=== PATIENT | male | born 1955 | race Two or more races ===

== ENCOUNTER 2022-07-28 23:19 | Inpatient (IN) | payer OTHER ==
[~2022-07-28] VITALS: Ht 170.2 cm; Wt 80.5 kg
[2022-07-29 00:50] LABS: Hematocrit 37.9 % (41.0-53.0); Hemoglobin 12.9 g/dL (13.5-17.5); Mean Corpuscular Hemoglobin 28.1 pg (28.0-32.0); Mean Corpuscular Hgb Conc. 33.9 g/dL (32.0-36.0); Mean Corpuscular Volume 82.8 fL (80.0-100.0); Red Blood Cells 4.58 10^6/uL (4.5-5.90); Red Cell Distribution Width 15.2 % (11.8-14.3); White Blood Cell 27.3 10^3/uL (4.4-10.8)
[2022-07-29 00:53] LABS: Band Neutrophils % (manual) 0; Basophils % (manual) 0 (0.0-2.0); Blast Cells 0; Eosinophils % (manual) 0 (0-7); Metamyelocytes % 0; Myelocytes % 0; Promyelocytes % 0; Reactive Lymphocytes 0
[2022-07-29 00:57] LABS: Albumin 2.6 g/dL (3.4-5.0); BUN/Creatinine Ratio 12.7 (10.0-20.0); Calcium 9.7 mg/dL (8.5-10.1)
[2022-07-29 01:06] LABS: Bilirubin, Total 0.3 mg/dL (0.2-1.0); INR 0.97 (0.9-1.15); Partial Thromboplastin Time 23.9 sec (24.6-33.4); Total Protein 8.8 g/dL (6.4-8.2)
[2022-07-29 01:35] LABS: Lymphocytes % (manual) 6 (10.0-50.0); Monocytes % (manual) 5 (0-12)
[2022-07-29] MEDS ORDERED: PIPERACILLIN-TAZOB 3.375GM 100 ML IV ONE (02:15)
[2022-07-29] MEDS: LACTATED RINGER'S 1,950 ML IV ONE ×2 (02:15→02:22)
[2022-07-29] MEDS ORDERED: VANCOMYCIN 1GM/250ML 250 ML IV ONE ×2 (02:15→06:00)
[2022-07-29] MEDS: hydrALAZINE HCL 20 MG/ML VL IV ONE ×2 (02:15→02:24)
[2022-07-29] MEDS ORDERED: levoFLOXacin 750MG 150 ML IV ONE (02:30)
[2022-07-29] MEDS ORDERED: HEPARIN SODIUM (PORCINE) 5000 UNITS/ML 1ML VIAL IV ONE ×2 (04:15→16:30)
[2022-07-29] MEDS ORDERED: HEPARIN DRIP/D5W 100UNITS/ML 250 ML IV SCH ×3 (04:15→16:30)
[2022-07-29] MEDS ORDERED: hydrALAZINE HCL 20 MG/ML VL IV PRN (04:45)
[2022-07-29] MEDS ORDERED: FUROSEMIDE 40 MG/4 ML VIAL IV ONE (04:45)
[2022-07-29] MEDS ORDERED: ACETAMINOPHEN 325 MG TAB PO PRN (04:45)
[2022-07-29] MEDS ORDERED: VANCOMYCIN PER PHARMACY 0 MG IV SCH (04:45)
[2022-07-29] MEDS ORDERED: DEXTROSE (50%) 50ML SYRG IV PRN (04:45)
[2022-07-29] MEDS ORDERED: ONDANSETRON HCL 4 MG/2 ML VIAL IV PRN (04:45)
[2022-07-29] MEDS ORDERED: DOCUSATE SOD 100 MG CAP PO PRN (04:45)
[2022-07-29] MEDS ORDERED: cloNIDine HCL 0.1 MG TAB ONE (05:51)
[2022-07-29] MEDS: SODIUM CHLOR 0.9% PF (SALINE LOCK) 10ML VIAL/SYR IV SCH ×3 (06:00→22:56)
[2022-07-29] MEDS ORDERED: cloNIDine HCL 0.1 MG TAB PO ONE (06:00)
[2022-07-29] MEDS ORDERED: MORPHINE SULFATE INJ 2 MG/ml SYRG IV PRN (06:15)
[2022-07-29] MEDS ORDERED: NITROGLYCERIN 0.4 MG SL TAB SL PRN (06:15)
[2022-07-29] MEDS ORDERED: FUROSEMIDE 40 MG TAB PO ONE (06:45)
[2022-07-29] MEDS: ACCU-CHEK COMFORT CURVE STRIP VI SCH ×4 (07:21→22:56)
[2022-07-29] MEDS: InsuLIN REG 1unit/0.01ml Soln (100units/ml) SC SCH ×4 (07:27→23:12)
[2022-07-29] MEDS: FAMOTIDINE (10MG/ML) 2ML VL IV SCH (11:46)
[2022-07-29] MEDS: CARVEDILOL 12.5 MG TAB PO SCH ×2 (11:46→22:56)
[2022-07-29] MEDS: amLODIPine BESYLATE 5 MG TAB PO SCH (11:47)
[2022-07-29] MEDS: ASPirin 81 mg TAB PO SCH (11:47)
[2022-07-29] MEDS: HYDROcodone-ACET 5/325MG TAB PO PRN ×3 (12:00→20:28)
[2022-07-29 14:50] LABS: Basophils # (auto) 0.1 10 ^3/uL (0-0.2); Basophils % (auto) 0.3 % (0.0-2.0); Eosinophils # (auto) 0 10 ^3/uL (0-0.8); Eosinophils % (auto) 0.1 % (0.0-7.0); Hematocrit 35.2 % (41.0-53.0); Hemoglobin 11.8 g/dL (13.5-17.5); Lymphocytes # (auto) 1.6 10 ^3/uL (0.4-5.4); Lymphocytes % (auto) 7.1 % (10.0-50.0); Mean Corpuscular Hemoglobin 26.9 pg (28.0-32.0); Mean Corpuscular Hgb Conc. 33.5 g/dL (32.0-36.0); Mean Corpuscular Volume 80.5 fL (80.0-100.0); Monocytes # (auto) 1.1 10 ^3/uL (0-1.3); Neutrophils # (auto) 19.5 10 ^3/uL (1.6-8.6); Neutrophils % (auto) 87.5 % (37.0-80.0); Nucleated Red Blood Cells % 0.1 %; Red Blood Cells 4.37 10^6/uL (4.5-5.90); Red Cell Distribution Width 15.6 % (11.8-14.3); White Blood Cell 22.3 10^3/uL (4.4-10.8)
[2022-07-29] MEDS ORDERED: levoFLOXacin 250MG 50 ML IV ONE (15:00)
[2022-07-29 15:10] LABS: Albumin 2.1 g/dL (3.4-5.0); Calcium 8.7 mg/dL (8.5-10.1); Potassium 3.6 mmol/L (3.5-5.1)
[2022-07-29 15:18] LABS: Bilirubin, Total 0.4 mg/dL (0.2-1.0); Total Protein 7.4 g/dL (6.4-8.2)
[2022-07-29 15:59] LABS: INR 1.08 (0.9-1.15); Partial Thromboplastin Time 24.3 sec (24.6-33.4)
[2022-07-29] MEDS ORDERED: PIPERACILLIN-TAZOB 3.375GM 100 ML IV SCH (22:00)
[2022-07-29 22:05] VITALS: BP 146/82
[2022-07-29] MEDS: LINEZOLID 600MG/300ML 300 ML IV SCH (23:07)
[2022-07-29 23:37] LABS: INR 1.09 (0.9-1.15); Partial Thromboplastin Time 40.2 sec (24.6-33.4)
[2022-07-30] MEDS: HYDROcodone-ACET 5/325MG TAB PO PRN ×5 (01:51→21:25)
[2022-07-30 05:00] VITALS: BP 135/82
[2022-07-30] MEDS: SODIUM CHLOR 0.9% PF (SALINE LOCK) 10ML VIAL/SYR IV SCH ×3 (05:52→21:35)
[2022-07-30] MEDS: ACCU-CHEK COMFORT CURVE STRIP VI SCH ×4 (07:01→21:41)
[2022-07-30] MEDS: InsuLIN REG 1unit/0.01ml Soln (100units/ml) SC SCH ×4 (07:05→21:41)
[2022-07-30 07:27] LABS: INR 1.06 (0.9-1.15); Partial Thromboplastin Time 33.3 sec (24.6-33.4)
[2022-07-30] MEDS ORDERED: HEPARIN DRIP/D5W 100UNITS/ML 250 ML IV SCH (08:45)
[2022-07-30] MEDS ORDERED: HEPARIN SODIUM (PORCINE) 5000 UNITS/ML 1ML VIAL IV ONE (08:45)
[2022-07-30 09:00] VITALS: BP 132/84
[2022-07-30] MEDS ORDERED: FUROSEMIDE 40 MG/4 ML VIAL IV SCH (10:00)
[2022-07-30 10:03] LABS: Basophils # (auto) 0 10 ^3/uL (0-0.2); Basophils % (auto) 0.3 % (0.0-2.0); Eosinophils # (auto) 0.3 10 ^3/uL (0-0.8); Eosinophils % (auto) 2.1 % (0.0-7.0); Hematocrit 34.8 % (41.0-53.0); Hemoglobin 11.7 g/dL (13.5-17.5); Lymphocytes # (auto) 1.4 10 ^3/uL (0.4-5.4); Lymphocytes % (auto) 9.3 % (10.0-50.0); Mean Corpuscular Hemoglobin 27.5 pg (28.0-32.0); Mean Corpuscular Hgb Conc. 33.6 g/dL (32.0-36.0); Monocytes # (auto) 0.8 10 ^3/uL (0-1.3); Monocytes % (auto) 5.3 % (0.0-12.0); Neutrophils # (auto) 12.3 10 ^3/uL (1.6-8.6); Nucleated Red Blood Cells % 0.1 %; Red Blood Cells 4.24 10^6/uL (4.5-5.90); Red Cell Distribution Width 15.7 % (11.8-14.3); White Blood Cell 14.8 10^3/uL (4.4-10.8)
[2022-07-30 10:26] LABS: Albumin 2.1 g/dL (3.4-5.0); Calcium 8.1 mg/dL (8.5-10.1); Potassium 3.8 mmol/L (3.5-5.1)
[2022-07-30 10:30] LABS: BUN/Creatinine Ratio 13.6 (10.0-20.0); Bilirubin, Total 0.2 mg/dL (0.2-1.0); Total Protein 7.2 g/dL (6.4-8.2)
[2022-07-30] MEDS: CARVEDILOL 12.5 MG TAB PO SCH ×2 (10:45→21:26)
[2022-07-30] MEDS: amLODIPine BESYLATE 5 MG TAB PO SCH (10:45)
[2022-07-30] MEDS: levoFLOXacin 250MG 50 ML IV SCH (10:46)
[2022-07-30] MEDS: FAMOTIDINE (10MG/ML) 2ML VL IV SCH (10:46)
[2022-07-30] MEDS: LINEZOLID 600MG/300ML 300 ML IV SCH ×2 (10:46→21:34)
[2022-07-30] MEDS: ASPirin 81 mg TAB PO SCH (10:46)
[2022-07-30 13:00] VITALS: BP 154/78
[2022-07-30 17:00] VITALS: BP 137/87
[2022-07-30 18:53] LABS: INR 1.08 (0.9-1.15); Partial Thromboplastin Time 108.2 sec (24.6-33.4)
[2022-07-31 05:00] VITALS: BP 140/72
[2022-07-31] MEDS: HYDROcodone-ACET 5/325MG TAB PO PRN ×4 (05:07→20:38)
[2022-07-31] MEDS: SODIUM CHLOR 0.9% PF (SALINE LOCK) 10ML VIAL/SYR IV SCH ×3 (05:08→22:12)
[2022-07-31] MEDS: ACCU-CHEK COMFORT CURVE STRIP VI SCH ×4 (06:39→22:18)
[2022-07-31] MEDS: InsuLIN REG 1unit/0.01ml Soln (100units/ml) SC SCH ×4 (06:43→22:26)
[2022-07-31 09:00] VITALS: BP 149/81
[2022-07-31] MEDS: levoFLOXacin 250MG 50 ML IV SCH (09:45)
[2022-07-31] MEDS: LINEZOLID 600MG/300ML 300 ML IV SCH ×2 (09:45→22:11)
[2022-07-31] MEDS: ASPirin 81 mg TAB PO SCH (09:45)
[2022-07-31] MEDS: amLODIPine BESYLATE 5 MG TAB PO SCH (09:50)
[2022-07-31] MEDS: CARVEDILOL 12.5 MG TAB PO SCH ×2 (09:50→22:18)
[2022-07-31 13:00] VITALS: BP 147/83
[2022-07-31 13:14] LABS: Basophils # (auto) 0 10 ^3/uL (0-0.2); Basophils % (auto) 0.3 % (0.0-2.0); Eosinophils # (auto) 0.2 10 ^3/uL (0-0.8); Eosinophils % (auto) 2.7 % (0.0-7.0); Hematocrit 36.8 % (41.0-53.0); Hemoglobin 12.3 g/dL (13.5-17.5); Lymphocytes % (auto) 12.5 % (10.0-50.0); Mean Corpuscular Hemoglobin 27.8 pg (28.0-32.0); Mean Corpuscular Hgb Conc. 33.4 g/dL (32.0-36.0); Mean Corpuscular Volume 83.4 fL (80.0-100.0); Monocytes # (auto) 0.4 10 ^3/uL (0-1.3); Monocytes % (auto) 5.1 % (0.0-12.0); Neutrophils # (auto) 6.6 10 ^3/uL (1.6-8.6); Neutrophils % (auto) 79.4 % (37.0-80.0); Red Blood Cells 4.41 10^6/uL (4.5-5.90); Red Cell Distribution Width 15.8 % (11.8-14.3); White Blood Cell 8.3 10^3/uL (4.4-10.8)
[2022-07-31 13:28] LABS: BUN/Creatinine Ratio 12.7 (10.0-20.0); Calcium 8.1 mg/dL (8.5-10.1); Potassium 4.1 mmol/L (3.5-5.1)
[2022-07-31 16:44] LABS: Urine Bacteria NONE SEEN /hpf (None Seen); Urine Blood 1+ /uL (Negative); Urine Specific Gravity 1.015 (1.001-1.035); Urine WBC 1 /hpf (0 - 3)
[2022-07-31 17:00] VITALS: BP 155/89
[2022-07-31 17:11] LABS: Protein, Urine 487.9 mg/dL (0.0-11.9)
[2022-07-31 22:00] VITALS: BP 157/81
[2022-08-01 05:00] VITALS: BP 165/92
[2022-08-01] MEDS: HYDROcodone-ACET 5/325MG TAB PO PRN ×3 (05:35→13:44)
[2022-08-01] MEDS: SODIUM CHLOR 0.9% PF (SALINE LOCK) 10ML VIAL/SYR IV SCH ×2 (05:36→14:00)
[2022-08-01] MEDS: ACCU-CHEK COMFORT CURVE STRIP VI SCH ×3 (06:30→17:00)
[2022-08-01] MEDS: InsuLIN REG 1unit/0.01ml Soln (100units/ml) SC SCH ×3 (06:33→17:00)
[2022-08-01 09:00] VITALS: BP 164/90
[2022-08-01 10:02] LABS: Hepatitis B Surface Antibody Positive (Negative)
[2022-08-01] MEDS: ASPirin 81 mg TAB PO SCH (10:26)
[2022-08-01] MEDS: amLODIPine BESYLATE 5 MG TAB PO SCH (10:26)
[2022-08-01] MEDS: CARVEDILOL 12.5 MG TAB PO SCH (10:27)
[2022-08-01] MEDS: levoFLOXacin 250MG 50 ML IV SCH (10:28)
[2022-08-01] MEDS: LINEZOLID 600MG/300ML 300 ML IV SCH (10:28)
[2022-08-01 12:55] LABS: Hepatitis C Antibody Reactive (Negative)
[2022-08-01 13:00] VITALS: BP 165/81
[2022-08-01 16:22] VITALS: BP 164/90
[2022-08-01 17:17] VITALS: BP 165/85
== END 2022-08-01 18:55 | disposition short-term general hospital (02) | DRG 871 ==
LOC: EDBD 23:19 → ER 23:19 → TELE 07-29 06:07 → TELE-WESTW 07-29 21:48
PROVIDERS: ADMIT Nurse Practitioner Family; ATTEND Internal Medicine
DX: A41.9 Sepsis, unspecified organism (principal); I21.A1 Myocardial infarction type 2; J18.9 Pneumonia, unspecified organism; I50.43 Acute on chronic combined systolic (congestive) and diastolic (congestive) heart failure; N17.0 Acute kidney failure with tubular necrosis; I16.1 Hypertensive emergency; N18.4 Chronic kidney disease, stage 4 (severe); I13.0 Hypertensive heart and chronic kidney disease with heart failure and stage 1 through stage 4 chronic kidney disease, or unspecified chronic kidney disease; J44.0 Chronic obstructive pulmonary disease with (acute) lower respiratory infection; L03.116 Cellulitis of left lower limb; L03.115 Cellulitis of right lower limb; Z20.822 Contact with and (suspected) exposure to COVID-19; R65.20 Severe sepsis without septic shock; E11.22 Type 2 diabetes mellitus with diabetic chronic kidney disease; E88.09 Other disorders of plasma-protein metabolism, not elsewhere classified; E11.65 Type 2 diabetes mellitus with hyperglycemia; F11.90 Opioid use, unspecified, uncomplicated; Z88.0 Allergy status to penicillin; Z91.148 Patient's other noncompliance with medication regimen for other reason
CPT/HCPCS: 36415; 70450; 71045; 71250; 74176; 76775; 80048; 80053; 81001; 82570; 82962; 83605; 83880; 84156; 84300; 84484; 85007; 85025; 85027; 85610; 85730; 86706; 86803; 87040; 87081; 87426; 93306; 96365; 96367; 96372; 96375; 99291; G0378; J1815; J2543; J3490

== ENCOUNTER 2023-11-09 14:06 | Inpatient (IN) | payer OTHER, BC ==
[~2023-11-09] VITALS: Ht 175.3 cm; Wt 93.1 kg
[2023-11-09 05:01] VITALS: PULSE 72; RESP 18; O2SAT 95
[2023-11-09 15:52] LABS: Basophils # (auto) 0 10 ^3/uL (0-0.2); Basophils % (auto) 0.6 % (0.0-2.0); Hematocrit 31.2 % (41.0-53.0); Hemoglobin 10.5 g/dL (13.5-17.5); Lymphocytes # (auto) 1.5 10 ^3/uL (0.4-5.4); Mean Corpuscular Hemoglobin 30.3 pg (28.0-32.0); Mean Corpuscular Hgb Conc. 33.8 g/dL (32.0-36.0); Mean Corpuscular Volume 89.7 fL (80.0-100.0); Monocytes # (auto) 0.5 10 ^3/uL (0-1.3); Monocytes % (auto) 6.9 % (0.0-12.0); Neutrophils # (auto) 4.4 10 ^3/uL (1.6-8.6); Neutrophils % (auto) 59.5 % (37.0-80.0); Platelet Count (auto) 148 10^3/uL (140-450); Red Blood Cells 3.48 10^6/uL (4.5-5.90); Red Cell Distribution Width 14.9 % (11.8-14.3); White Blood Cell 7.4 10^3/uL (4.4-10.8)
[2023-11-09 16:35] LABS: Chloride 107 mmol/L (98-107); Potassium 4.4 mmol/L (3.5-5.1); Sodium 136 mmol/L (136-145)
[2023-11-09 16:36] LABS: Anion Gap 11 (5-15); Calcium 8.9 mg/dL (8.7-10.4); Carbon Dioxide 18 mmol/L (20-30)
[2023-11-09 16:41] LABS: BUN/Creatinine Ratio 7.8 (10.0-20.0); Blood Urea Nitrogen 40 mg/dL (9-23); Glucose 263 mg/dL (74-106)
[2023-11-09 17:15] VITALS: PULSE 62; RESP 18; O2SAT 100
[2023-11-09 17:18] LABS: COVID19 ANTIGEN SOFIA FIA NEGATIVE (NEGATIVE)
[2023-11-09] MEDS: DOXYCYCLINE 100MG/250ML 250 ML IV ONE (17:23)
[2023-11-09] MEDS: DexAMETHasone SOD PHOS 10MG/1ML VIAL INJ IV ONE (17:23)
[2023-11-09 20:00] VITALS: PULSE 92; RESP 95; O2SAT 95
[2023-11-09] MEDS: hydrALAZINE HCL 20 MG/ML VL IV ONE (20:11)
[2023-11-10] VITALS (11 sets, daily range): BP systolic 106–197; BP diastolic 51–89; PULSE 60–74; RESP 14–19; TEMP 97.5–98; O2SAT 95–100
[2023-11-10] MEDS ORDERED: NITROGLYCERIN 0.4 MG SL TAB SL PRN (01:30)
[2023-11-10] MEDS ORDERED: ACETAMINOPHEN 325 MG TAB PO PRN (01:30)
[2023-11-10] MEDS ORDERED: DEXTROSE (50%) 50ML SYRG IV PRN (01:30)
[2023-11-10] MEDS ORDERED: SODIUM CHLORIDE 0.9% 1,000 ML IV SCH (01:30)
[2023-11-10] MEDS ORDERED: ONDANSETRON HCL 4 MG/2 ML VIAL IV PRN (01:30)
[2023-11-10] MEDS ORDERED: DOCUSATE SOD 100 MG CAP PO PRN (01:30)
[2023-11-10] MEDS: hydrALAZINE HCL 20 MG/ML VL IV PRN (02:58)
[2023-11-10] MEDS: cloNIDine HCL 0.1 MG TAB PO PRN (04:38)
[2023-11-10] MEDS: DOXYCYCLINE 100MG/250ML 250 ML IV SCH (05:00)
[2023-11-10] MEDS: InsuLIN REG 1unit/0.01ml Soln (100units/ml) SC SCH ×2 (06:02→21:51)
[2023-11-10] MEDS: ACCU-CHEK COMFORT CURVE STRIP VI SCH (06:02)
[2023-11-10] MEDS: amLODIPine BESYLATE 5 MG TAB PO SCH (10:50)
[2023-11-10] MEDS: METOPROLOL TARTRATE 25 MG TAB PO SCH (10:51)
[2023-11-10] MEDS: ASPirin 81 mg TAB PO SCH (10:51)
[2023-11-10 11:42] LABS: Basophils # (auto) 0.1 10 ^3/uL (0-0.2); Basophils % (auto) 0.7 % (0.0-2.0); Eosinophils # (auto) 0 10 ^3/uL (0-0.8); Eosinophils % (auto) 0.1 % (0.0-7.0); Hematocrit 29.2 % (41.0-53.0); Lymphocytes # (auto) 1.2 10 ^3/uL (0.4-5.4); Lymphocytes % (auto) 10.9 % (10.0-50.0); Mean Corpuscular Hgb Conc. 34.2 g/dL (32.0-36.0); Mean Corpuscular Volume 87.6 fL (80.0-100.0); Monocytes # (auto) 0.6 10 ^3/uL (0-1.3); Monocytes % (auto) 5.3 % (0.0-12.0); Neutrophils # (auto) 9.2 10 ^3/uL (1.6-8.6); Nucleated Red Blood Cells % 0.1 %; Platelet Count (auto) 118 10^3/uL (140-450); Red Blood Cells 3.34 10^6/uL (4.5-5.90); Red Cell Distribution Width 14.7 % (11.8-14.3)
[2023-11-10] MEDS ORDERED: hydrALAZINE HCL 20 MG/ML VL IV PRN ×2 (12:00→12:15)
[2023-11-10 12:34] LABS: Platelet Estimate Decreased
[2023-11-10 12:52] LABS: Alanine Aminotransferase < 9 U/L (7-40); Albumin 3.9 g/dL (3.2-4.8); Alkaline Phosphatase 100 U/L (46-116); Anion Gap 11 (5-15); Aspartate Aminotransferase < 8 U/L (13-40); BUN/Creatinine Ratio 10.1 (10.0-20.0); Bilirubin, Total 0.2 mg/dL (0.2-1.0); Blood Urea Nitrogen 52 mg/dL (9-23); Calcium 8.8 mg/dL (8.7-10.4); Carbon Dioxide 16 mmol/L (20-30); Chloride 107 mmol/L (98-107); Glucose 154 mg/dL (74-106); Magnesium 1.7 mg/dL (1.6-2.6); Phosphorus 3.3 mg/dL (2.4-5.1); Potassium 4.7 mmol/L (3.5-5.1); Sodium 134 mmol/L (136-145); Total Protein 7.3 g/dL (5.7-8.2)
[2023-11-10 13:29] LABS: % Iron Saturation 25.7 % (20-55)
[2023-11-10] MEDS: NIFEdipine ER 30 MG TAB PO ONE (14:08)
[2023-11-10] MEDS: CARVEDILOL 12.5 MG TAB PO ONE (14:09)
[2023-11-10 15:13] LABS: INR 1.06 (0.9-1.15); Partial Thromboplastin Time 30.6 SEC (24.5-34.5); Prothrombin Time 11.2 sec (9.3-11.8)
[2023-11-10] MEDS ORDERED: NIFE1TAB30 PO (17:50)
[2023-11-10] MEDS ORDERED: TAMS0.4C39 PO (17:50)
[2023-11-10] MEDS ORDERED: ISOS20TA5 PO (17:50)
[2023-11-10] MEDS ORDERED: ATOR80TA PO (17:50)
[2023-11-10] MEDS ORDERED: CARV25TA55 PO (17:50)
[2023-11-10] MEDS ORDERED: FURO40TA4 PO (17:50)
[2023-11-10] MEDS ORDERED: SACU1TAB4 PO (17:50)
[2023-11-10] MEDS ORDERED: GLIP5TAB21 PO (17:50)
[2023-11-10] MEDS ORDERED: HYDR50TA47 PO (17:50)
[2023-11-10] MEDS: SACUBITRIL-VALSARTAN 24mg/26mg TAB PO SCH (21:43)
[2023-11-10] MEDS: HYDROcodone-ACET 5/325MG TAB PO PRN (21:44)
[2023-11-10] MEDS: CARVEDILOL 12.5 MG TAB PO SCH (21:44)
[2023-11-10] MEDS: hydrALAZINE HCL 25 MG TAB PO SCH (21:44)
[2023-11-11] VITALS (7 sets, daily range): BP systolic 106–133; BP diastolic 48–70; PULSE 59–75; RESP 14–19; TEMP 97.5–98.7; O2SAT 96–97
[2023-11-11 07:06] LABS: Albumin 3.6 g/dL (3.2-4.8); Alkaline Phosphatase 95 U/L (46-116); Anion Gap 12 (5-15); Aspartate Aminotransferase 13 U/L (13-40); BUN/Creatinine Ratio 11.5 (10.0-20.0); Calcium 8.6 mg/dL (8.7-10.4); Carbon Dioxide 16 mmol/L (20-30); Chloride 106 mmol/L (98-107); Cholesterol 147 mg/dL (< 200); HDL Cholesterol 30 mg/dL (40-59); LDL Cholesterol 77 mg/dL (< 100); Magnesium 1.7 mg/dL (1.6-2.6); Potassium 4.7 mmol/L (3.5-5.1); Sodium 134 mmol/L (136-145); Triglycerides 304 mg/dL (< 150)
[2023-11-11 07:07] LABS: Bilirubin, Total < 0.2 mg/dL (0.2-1.0); Total Protein 6.8 g/dL (5.7-8.2)
[2023-11-11 08:23] LABS: Alanine Aminotransferase < 9 U/L (7-40); Blood Urea Nitrogen 63 mg/dL (9-23); Glucose 327 mg/dL (74-106)
[2023-11-11] MEDS: MAGNESIUM SULFATE 1GM/100ML 100 ML IV SCH (09:09)
[2023-11-11] MEDS ORDERED: NIFEdipine ER 30 MG TAB PO SCH (10:00)
[2023-11-11 13:27] LABS: Basophils # (auto) 0 10 ^3/uL (0-0.2); Basophils % (auto) 0.4 % (0.0-2.0); Eosinophils # (auto) 0.5 10 ^3/uL (0-0.8); Eosinophils % (auto) 5.4 % (0.0-7.0); Hematocrit 28.6 % (41.0-53.0); Hemoglobin 9.9 g/dL (13.5-17.5); Lymphocytes # (auto) 1.9 10 ^3/uL (0.4-5.4); Lymphocytes % (auto) 20.1 % (10.0-50.0); Mean Corpuscular Hemoglobin 30.5 pg (28.0-32.0); Mean Corpuscular Hgb Conc. 34.5 g/dL (32.0-36.0); Mean Corpuscular Volume 88.4 fL (80.0-100.0); Monocytes # (auto) 0.5 10 ^3/uL (0-1.3); Monocytes % (auto) 5.1 % (0.0-12.0); Neutrophils # (auto) 6.5 10 ^3/uL (1.6-8.6); Nucleated Red Blood Cells % 0.1 %; Platelet Count (auto) 166 10^3/uL (140-450); Red Blood Cells 3.23 10^6/uL (4.5-5.90); Red Cell Distribution Width 14.9 % (11.8-14.3); White Blood Cell 9.4 10^3/uL (4.4-10.8)
[2023-11-11] MEDS: GABAPENTIN 100 MG CAP PO SCH (13:59)
[2023-11-12] VITALS (7 sets, daily range): BP systolic 130–156; BP diastolic 61–72; PULSE 65–75; RESP 18–24; TEMP 97.7–98.4; O2SAT 95–98
[2023-11-12 13:38] LABS: Hematocrit 29.1 % (41.0-53.0); Hemoglobin 9.8 g/dL (13.5-17.5); Mean Corpuscular Hemoglobin 30.5 pg (28.0-32.0); Mean Corpuscular Hgb Conc. 33.8 g/dL (32.0-36.0); Platelet Count (auto) 172 10^3/uL (140-450); Red Blood Cells 3.23 10^6/uL (4.5-5.90); White Blood Cell 8.9 10^3/uL (4.4-10.8)
[2023-11-12 13:47] LABS: Band Neutrophils % (manual) 0; Basophils % (manual) 0 (0.0-2.0); Blast Cells 0; Metamyelocytes % 0; Myelocytes % 0; Promyelocytes % 0
[2023-11-12 14:01] LABS: Lymphocytes % (manual) 22 (10.0-50.0); Monocytes % (manual) 5 (0-12)
[2023-11-12 14:02] LABS: Alanine Aminotransferase 10 U/L (7-40); Alkaline Phosphatase 86 U/L (46-116); Calcium 8.4 mg/dL (8.7-10.4); Carbon Dioxide 16 mmol/L (20-30); Chloride 109 mmol/L (98-107); Eosinophils % (manual) 8 (0-7); Glucose 232 mg/dL (74-106); Potassium 4.8 mmol/L (3.5-5.1); Reactive Lymphocytes 1; Sodium 136 mmol/L (136-145)
[2023-11-12 14:03] LABS: Albumin 3.6 g/dL (3.2-4.8); Anion Gap 11 (5-15); Aspartate Aminotransferase < 8 U/L (13-40); BUN/Creatinine Ratio 11.1 (10.0-20.0); Bilirubin, Total < 0.2 mg/dL (0.2-1.0); Blood Urea Nitrogen 61 mg/dL (9-23); Platelet Estimate Adequate; RBC Morphology Normal; Total Protein 6.6 g/dL (5.7-8.2)
[2023-11-13] VITALS (11 sets, daily range): BP systolic 139–161; BP diastolic 56–76; PULSE 61–99; RESP 12–20; TEMP 97–97.9; O2SAT 96–100
[2023-11-13 08:58] LABS: Hepatitis B Surface Antigen Negative (Negative)
[2023-11-13 09:25] LABS: Hepatitis C Antibody Reactive (Negative)
[2023-11-13] MEDS: fentaNYL CITRATE 100 MCG/2 ML VL ONE (10:28)
[2023-11-13] MEDS: MIDAZOLAM HCL 2MG/2ML 2ml VIAL (1mg/ml) ONE (10:28)
[2023-11-13] MEDS: HEPARIN SODIUM (PORCINE) 5000 UNITS/ML 1ML VIAL ONE (10:28)
[2023-11-13] MEDS: LIDOCAINE 2%HCL (LOCAL ANESTH.) INJ 20ML MDV ONE (10:28)
[2023-11-13] MEDS: CLINDAMYCIN 600MG IV 50 ML IV ONE (11:07)
[2023-11-13] MEDS ORDERED: DEXTROSE (50%) 50ML SYRG IV PRN (22:15)
[2023-11-13] MEDS: EPOETIN ALFA-EPBX 10,000 UNIT/1ML VIAL SC ONE (22:44)
[2023-11-13] MEDS: InsuLIN REG 1unit/0.01ml Soln (100units/ml) SC SCH (22:45)
[2023-11-13] MEDS: InsuLIN REG 1unit/0.01ml Soln (100units/ml) ONE (22:51)
[2023-11-14] VITALS (8 sets, daily range): BP systolic 137–175; BP diastolic 65–78; PULSE 63–80; RESP 14–19; TEMP 97.8–98.4; O2SAT 96–98
[2023-11-14] MEDS: ACCU-CHEK COMFORT CURVE STRIP VI SCH (06:32)
[2023-11-14] MEDS ORDERED: InsuLIN REG 1unit/0.01ml Soln (100units/ml) SC SCH (07:00)
[2023-11-14 08:12] LABS: Hematocrit 27.1 % (41.0-53.0); Hemoglobin 9.2 g/dL (13.5-17.5); Mean Corpuscular Hemoglobin 30.4 pg (28.0-32.0); Mean Corpuscular Hgb Conc. 33.8 g/dL (32.0-36.0); Mean Corpuscular Volume 89.9 fL (80.0-100.0); Platelet Count (auto) 149 10^3/uL (140-450); Red Blood Cells 3.02 10^6/uL (4.5-5.90); White Blood Cell 8.8 10^3/uL (4.4-10.8)
[2023-11-14 08:14] LABS: Basophils % (manual) 0 (0.0-2.0); Blast Cells 0; Metamyelocytes % 0; Promyelocytes % 0; Reactive Lymphocytes 0
[2023-11-14 08:19] LABS: Alanine Aminotransferase 13 U/L (7-40); Albumin 3.2 g/dL (3.2-4.8); Alkaline Phosphatase 73 U/L (46-116); Anion Gap 10 (5-15); Aspartate Aminotransferase < 8 U/L (13-40); BUN/Creatinine Ratio 10.5 (10.0-20.0); Bilirubin, Total < 0.2 mg/dL (0.2-1.0); Calcium 8.3 mg/dL (8.7-10.4); Carbon Dioxide 21 mmol/L (20-30); Chloride 108 mmol/L (98-107); Glucose 222 mg/dL (74-106); Magnesium 1.8 mg/dL (1.6-2.6); Potassium 3.9 mmol/L (3.5-5.1); Sodium 139 mmol/L (136-145); Total Protein 6.1 g/dL (5.7-8.2)
[2023-11-14 08:20] LABS: Blood Urea Nitrogen 45 mg/dL (9-23)
[2023-11-14 08:46] LABS: Band Neutrophils % (manual) 6; Eosinophils % (manual) 10 (0-7); Lymphocytes % (manual) 28 (10.0-50.0); Monocytes % (manual) 3 (0-12); Myelocytes % 2; Platelet Estimate Adequate
[2023-11-15] VITALS (8 sets, daily range): BP systolic 134–182; BP diastolic 56–84; PULSE 64–90; RESP 16–20; TEMP 97.9–98.8; O2SAT 96–99
[2023-11-15] MEDS: hydrALAZINE HCL 20 MG/ML VL IV ONE ×2 (03:19→11:05)
[2023-11-15] MEDS: SODIUM CHL 0.9% 1000 ML BAG XX ONE (08:22)
[2023-11-15] MEDS ORDERED: DEXTROSE (50%) 50ML SYRG IV PRN (11:15)
[2023-11-15] MEDS: ACCU-CHEK COMFORT CURVE STRIP VI SCH (11:23)
[2023-11-15] MEDS: hydrALAZINE HCL 20 MG/ML VL IV PRN (11:24)
[2023-11-15] MEDS: MORPHINE SULFATE INJ 2 MG/ml SYRG IV PRN ×2 (12:30→21:47)
[2023-11-15] MEDS: InsuLIN REG 1unit/0.01ml Soln (100units/ml) SC SCH ×2 (16:35→21:37)
[2023-11-15] MEDS ORDERED: hydrALAZINE HCL 20 MG/ML VL IV PRN (17:00)
[2023-11-16] VITALS (8 sets, daily range): BP systolic 135–189; BP diastolic 53–87; PULSE 50–89; RESP 18–21; TEMP 98–98.7; O2SAT 0–100
[2023-11-16 06:58] LABS: Basophils # (auto) 0.1 10 ^3/uL (0-0.2); Basophils % (auto) 0.6 % (0.0-2.0); Eosinophils % (auto) 9.8 % (0.0-7.0); Hematocrit 27.8 % (41.0-53.0); Hemoglobin 9.4 g/dL (13.5-17.5); Lymphocytes # (auto) 1.9 10 ^3/uL (0.4-5.4); Lymphocytes % (auto) 17.7 % (10.0-50.0); Mean Corpuscular Hemoglobin 30.9 pg (28.0-32.0); Mean Corpuscular Hgb Conc. 33.9 g/dL (32.0-36.0); Mean Corpuscular Volume 91.1 fL (80.0-100.0); Monocytes # (auto) 0.8 10 ^3/uL (0-1.3); Neutrophils # (auto) 6.8 10 ^3/uL (1.6-8.6); Neutrophils % (auto) 63.9 % (37.0-80.0); Nucleated Red Blood Cells % 0.4 %; Platelet Count (auto) 149 10^3/uL (140-450); Red Blood Cells 3.05 10^6/uL (4.5-5.90); Red Cell Distribution Width 15.6 % (11.8-14.3); White Blood Cell 10.7 10^3/uL (4.4-10.8)
[2023-11-16] MEDS ORDERED: SODIUM CHL 0.9% 1000 ML BAG XX ONE (07:00)
[2023-11-16 07:09] LABS: Calcium 8.6 mg/dL (8.7-10.4); Chloride 107 mmol/L (98-107); Potassium 4.6 mmol/L (3.5-5.1); Sodium 136 mmol/L (136-145)
[2023-11-16 07:10] LABS: Anion Gap 9 (5-15); Carbon Dioxide 20 mmol/L (20-30)
[2023-11-16 07:15] LABS: Glucose 240 mg/dL (74-106)
[2023-11-16 07:16] LABS: Blood Urea Nitrogen 55 mg/dL (9-23)
[2023-11-16] MEDS: TAMSULOSIN HYDROCHLORIDE 0.4 MG CAP PO SCH (18:00)
[2023-11-16] MEDS: ATORVASTATIN 20 MG TAB PO SCH (22:29)
[2023-11-17] VITALS (8 sets, daily range): BP systolic 110–153; BP diastolic 51–71; PULSE 63–94; RESP 16–18; TEMP 97.1–98.3; O2SAT 0–100
[2023-11-17 07:47] LABS: Hematocrit 28.7 % (41.0-53.0); Hemoglobin 9.5 g/dL (13.5-17.5); Mean Corpuscular Hemoglobin 30.1 pg (28.0-32.0); Mean Corpuscular Volume 91.4 fL (80.0-100.0); Platelet Count (auto) 173 10^3/uL (140-450); Red Blood Cells 3.13 10^6/uL (4.5-5.90); Red Cell Distribution Width 15.7 % (11.8-14.3); White Blood Cell 13.2 10^3/uL (4.4-10.8)
[2023-11-17 08:08] LABS: Anion Gap 11 (5-15); Calcium 8.6 mg/dL (8.7-10.4); Carbon Dioxide 19 mmol/L (20-31); Chloride 108 mmol/L (98-107); Potassium 4.8 mmol/L (3.5-5.1); Sodium 138 mmol/L (136-145)
[2023-11-17 08:14] LABS: BUN/Creatinine Ratio 11.4 (10.0-20.0); Blood Urea Nitrogen 58 mg/dL (9-23); Glucose 260 mg/dL (74-106)
[2023-11-17 08:26] LABS: Band Neutrophils % (manual) 0; Basophils % (manual) 0 (0.0-2.0); Blast Cells 0; Metamyelocytes % 0; Myelocytes % 0; Promyelocytes % 0; Reactive Lymphocytes 0
[2023-11-17 09:21] LABS: Eosinophils % (manual) 13 (0-7); Lymphocytes % (manual) 29 (10.0-50.0); Monocytes % (manual) 3 (0-12)
[2023-11-17 09:22] LABS: Platelet Estimate Adequate
[2023-11-17] MEDS ORDERED: SODIUM CHL 0.9% 1000 ML BAG XX ONE (11:30)
[2023-11-17] MEDS: NIFEdipine ER 30 MG TAB PO SCH (17:30)
[2023-11-17] MEDS: glipiZIDE 5 MG TAB PO SCH (17:31)
[2023-11-17] MEDS: FUROSEMIDE 40 MG TAB PO SCH (17:32)
[2023-11-17] MEDS: ISOSORBIDE DINITRATE 10 MG TAB PO SCH (17:33)
[2023-11-17] MEDS: EPOETIN ALFA-EPBX 4,000 UNIT/ML VIAL SC ONE (22:12)
[2023-11-18] VITALS (8 sets, daily range): BP systolic 108–142; BP diastolic 55–87; PULSE 79–89; RESP 16–19; TEMP 97.8–98.6; O2SAT 94–98
[2023-11-18 12:33] LABS: Basophils # (auto) 0.1 10 ^3/uL (0-0.2); Basophils % (auto) 0.7 % (0.0-2.0); Eosinophils % (auto) 8.2 % (0.0-7.0); Hematocrit 30.3 % (41.0-53.0); Hemoglobin 9.6 g/dL (13.5-17.5); Lymphocytes # (auto) 1.8 10 ^3/uL (0.4-5.4); Lymphocytes % (auto) 15.4 % (10.0-50.0); Mean Corpuscular Hemoglobin 28.8 pg (28.0-32.0); Mean Corpuscular Hgb Conc. 31.8 g/dL (32.0-36.0); Mean Corpuscular Volume 90.8 fL (80.0-100.0); Monocytes # (auto) 0.9 10 ^3/uL (0-1.3); Monocytes % (auto) 7.5 % (0.0-12.0); Neutrophils % (auto) 68.2 % (37.0-80.0); Nucleated Red Blood Cells % 0.1 %; Platelet Count (auto) 169 10^3/uL (140-450); Red Blood Cells 3.34 10^6/uL (4.5-5.90); White Blood Cell 11.7 10^3/uL (4.4-10.8)
[2023-11-18 12:47] LABS: Chloride 106 mmol/L (98-107); Potassium 4.8 mmol/L (3.5-5.1); Sodium 138 mmol/L (136-145)
[2023-11-18 12:48] LABS: Anion Gap 8 (5-15); Carbon Dioxide 24 mmol/L (20-31)
[2023-11-18 12:49] LABS: Calcium 8.4 mg/dL (8.7-10.4)
[2023-11-18 12:53] LABS: BUN/Creatinine Ratio 9.2 (10.0-20.0); Glucose 238 mg/dL (74-106)
[2023-11-18 12:54] LABS: Blood Urea Nitrogen 40 mg/dL (9-23)
[2023-11-19] VITALS (7 sets, daily range): BP systolic 112–128; BP diastolic 51–67; PULSE 82–92; RESP 17–20; TEMP 98.7–98.8; O2SAT 90–95
[2023-11-19 10:33] LABS: Alanine Aminotransferase 13 U/L (7-40); Albumin 3.4 g/dL (3.2-4.8); Alkaline Phosphatase 96 U/L (46-116); Anion Gap 10 (5-15); Aspartate Aminotransferase 14 U/L (13-40); BUN/Creatinine Ratio 6.9 (10.0-20.0); Blood Urea Nitrogen 36 mg/dL (9-23); Calcium 8.3 mg/dL (8.7-10.4); Carbon Dioxide 20 mmol/L (20-31); Chloride 107 mmol/L (98-107); Glucose 201 mg/dL (74-106); Potassium 5.3 mmol/L (3.5-5.1); Sodium 137 mmol/L (136-145)
[2023-11-19 10:34] LABS: Bilirubin, Total 0.2 mg/dL (0.2-1.0); Total Protein 6.6 g/dL (5.7-8.2)
[2023-11-19] MEDS: SODIUM ZIRCONIUM CYCL 10 GM PAK PO ONE (12:14)
[2023-11-19 14:46] LABS: Basophils # (auto) 0.1 10 ^3/uL (0-0.2); Basophils % (auto) 0.4 % (0.0-2.0); Eosinophils # (auto) 1.2 10 ^3/uL (0-0.8); Eosinophils % (auto) 9.9 % (0.0-7.0); Hematocrit 30.8 % (41.0-53.0); Hemoglobin 9.9 g/dL (13.5-17.5); Lymphocytes # (auto) 1.5 10 ^3/uL (0.4-5.4); Lymphocytes % (auto) 12.5 % (10.0-50.0); Mean Corpuscular Hemoglobin 29.4 pg (28.0-32.0); Mean Corpuscular Volume 91.9 fL (80.0-100.0); Monocytes # (auto) 0.9 10 ^3/uL (0-1.3); Monocytes % (auto) 7.8 % (0.0-12.0); Neutrophils # (auto) 8.3 10 ^3/uL (1.6-8.6); Neutrophils % (auto) 69.4 % (37.0-80.0); Platelet Count (auto) 168 10^3/uL (140-450); Red Blood Cells 3.35 10^6/uL (4.5-5.90); Red Cell Distribution Width 15.8 % (11.8-14.3); White Blood Cell 11.9 10^3/uL (4.4-10.8)
[2023-11-20] VITALS (7 sets, daily range): BP systolic 115–150; BP diastolic 57–73; PULSE 77–98; RESP 16–20; TEMP 97.6–98.9; O2SAT 91–96
[2023-11-20 08:06] LABS: Basophils # (auto) 0 10 ^3/uL (0-0.2); Basophils % (auto) 0.5 % (0.0-2.0); Eosinophils % (auto) 10.7 % (0.0-7.0); Hematocrit 27.9 % (41.0-53.0); Hemoglobin 9.2 g/dL (13.5-17.5); Lymphocytes # (auto) 1.8 10 ^3/uL (0.4-5.4); Mean Corpuscular Hemoglobin 30.3 pg (28.0-32.0); Mean Corpuscular Hgb Conc. 32.8 g/dL (32.0-36.0); Mean Corpuscular Volume 92.4 fL (80.0-100.0); Monocytes # (auto) 0.8 10 ^3/uL (0-1.3); Neutrophils # (auto) 5.7 10 ^3/uL (1.6-8.6); Neutrophils % (auto) 60.8 % (37.0-80.0); Nucleated Red Blood Cells % 0.1 %; Platelet Count (auto) 145 10^3/uL (140-450); Red Blood Cells 3.02 10^6/uL (4.5-5.90); Red Cell Distribution Width 15.7 % (11.8-14.3); White Blood Cell 9.3 10^3/uL (4.4-10.8)
[2023-11-20 08:10] LABS: Anion Gap 11 (5-15); Carbon Dioxide 21 mmol/L (20-31); Chloride 108 mmol/L (98-107); Sodium 140 mmol/L (136-145)
[2023-11-20 08:12] LABS: Calcium 8.5 mg/dL (8.7-10.4)
[2023-11-20 08:16] LABS: BUN/Creatinine Ratio 10.1 (10.0-20.0); Glucose 192 mg/dL (74-106)
[2023-11-20 08:21] LABS: Blood Urea Nitrogen 59 mg/dL (9-23)
[2023-11-20 08:22] LABS: Potassium 5.6 mmol/L (3.5-5.1)
[2023-11-20] MEDS: SODIUM CHL 0.9% 1000 ML BAG XX ONE (17:17)
[2023-11-20] MEDS: EPOETIN ALFA-EPBX 10,000 UNIT/1ML VIAL SC ONE (21:38)
[2023-11-21] VITALS (8 sets, daily range): BP systolic 122–150; BP diastolic 55–74; PULSE 67–93; RESP 16–20; TEMP 97.3–98.6; O2SAT 91–100
[2023-11-21] MEDS: SODIUM ZIRCONIUM CYCL 10 GM PAK PO ONE (08:48)
[2023-11-21 09:47] LABS: Chloride 106 mmol/L (98-107); Sodium 140 mmol/L (136-145)
[2023-11-21 09:48] LABS: Anion Gap 8 (5-15); Calcium 8.8 mg/dL (8.7-10.4); Carbon Dioxide 26 mmol/L (20-31)
[2023-11-21 09:53] LABS: BUN/Creatinine Ratio 9.4 (10.0-20.0); Glucose 136 mg/dL (74-106)
[2023-11-21 09:55] LABS: Blood Urea Nitrogen 39 mg/dL (9-23)
[2023-11-21] MEDS: SODIUM ZIRCONIUM CYCL 10 GM PAK PO SCH (10:30)
[2023-11-22] VITALS (7 sets, daily range): BP systolic 124–139; BP diastolic 57–73; PULSE 71–92; RESP 19–22; TEMP 36.5; O2SAT 90–95
[2023-11-22 06:49] LABS: Chloride 108 mmol/L (98-107); Potassium 5.3 mmol/L (3.5-5.1); Sodium 139 mmol/L (136-145)
[2023-11-22 06:50] LABS: Anion Gap 9 (5-15); Calcium 8.3 mg/dL (8.7-10.4); Carbon Dioxide 22 mmol/L (20-31)
[2023-11-22 06:55] LABS: BUN/Creatinine Ratio 9.2 (10.0-20.0); Blood Urea Nitrogen 48 mg/dL (9-23); Glucose 134 mg/dL (74-106)
[2023-11-22] MEDS ORDERED: SODIUM CHL 0.9% 1000 ML BAG XX ONE (07:00)
[2023-11-22] MEDS ORDERED: CARV-216 PO (14:23)
[2023-11-22] MEDS ORDERED: DOXY100C79 PO (14:23)
[2023-11-22] MEDS ORDERED: EPOETIN ALFA-EPBX 10,000 UNIT/1ML VIAL SC ONE (21:00)
== END 2023-11-22 18:48 | disposition home or self-care (01) | DRG 177 ==
LOC: ER 14:06 → TELE 11-10 02:31 → TELE-EAST 11-10 02:31
PROVIDERS: ADMIT Nurse Practitioner Family; ATTEND Nurse Practitioner Acute Care
PROC: 0JH63XZ Insertion of Tunneled Vascular Access Device into Chest Subcutaneous Tissue and Fascia, Percutaneous Approach (ICD-10-PCS; principal; 2023-11-13)
PROC: 02H633Z Insertion of Infusion Device into Right Atrium, Percutaneous Approach (ICD-10-PCS; 2023-11-13)
PROC: B5181ZA Fluoroscopy of Superior Vena Cava using Low Osmolar Contrast, Guidance (ICD-10-PCS; 2023-11-13)
PROC: B548ZZA Ultrasonography of Superior Vena Cava, Guidance (ICD-10-PCS; 2023-11-13)
PROC: 5A1D70Z Performance of Urinary Filtration, Intermittent, Less than 6 Hours Per Day (ICD-10-PCS; 2023-11-13)
PROC: 5A1D70Z Performance of Urinary Filtration, Intermittent, Less than 6 Hours Per Day (ICD-10-PCS; 2023-11-17)
PROC: 5A1D70Z Performance of Urinary Filtration, Intermittent, Less than 6 Hours Per Day (ICD-10-PCS; 2023-11-20)
PROC: 5A1D70Z Performance of Urinary Filtration, Intermittent, Less than 6 Hours Per Day (ICD-10-PCS; 2023-11-22)
DX: J15.69 Pneumonia due to other Gram-negative bacteria (principal); I50.23 Acute on chronic systolic (congestive) heart failure; N18.6 End stage renal disease; I13.2 Hypertensive heart and chronic kidney disease with heart failure and with stage 5 chronic kidney disease, or end stage renal disease; E87.20 Acidosis, unspecified; N17.9 Acute kidney failure, unspecified; I16.1 Hypertensive emergency; J15.9 Unspecified bacterial pneumonia; Z86.16 Personal history of COVID-19; Z20.822 Contact with and (suspected) exposure to COVID-19; E11.65 Type 2 diabetes mellitus with hyperglycemia; E11.22 Type 2 diabetes mellitus with diabetic chronic kidney disease; D63.1 Anemia in chronic kidney disease; E21.3 Hyperparathyroidism, unspecified; S81.802A Unspecified open wound, left lower leg, initial encounter; Z83.3 Family history of diabetes mellitus; Z79.4 Long term (current) use of insulin; Z79.899 Other long term (current) drug therapy; Z88.0 Allergy status to penicillin; Z99.2 Dependence on renal dialysis; X58.XXXA Exposure to other specified factors, initial encounter; Y93.89 Activity, other specified; Y92.89 Other specified places as the place of occurrence of the external cause; Y99.8 Other external cause status
CPT/HCPCS: 36415; 36558; 71045; 76775; 77001; 80048; 80053; 80061; 82306; 82728; 82962; 83036; 83540; 83550; 83735; 83880; 83970; 84100; 84443; 84484; 85007; 85025; 85027; 85610; 85730; 86803; 87340; 87426; 90935; 93306; 93925; 96365; 96366; 96375; 96376; 99152; 99291; C1894; G0378; J1100; J1642; J1815; J2250; J3490

== ENCOUNTER 2024-02-22 12:09 | Inpatient (IN) | payer OTHER, BC ==
[~2024-02-22] VITALS: Ht 170.2 cm; Wt 100.0 kg
[~2024-02-22 12:09] MED LIST: ATOR80TA PO; CARV-216 PO; CARV25TA55 PO; DOXY100C79 PO; FURO40TA4 PO; GLIP5TAB21 PO; HYDR50TA47 PO; ISOS20TA5 PO; NIFE1TAB30 PO; SACU1TAB4 PO; TAMS0.4C39 PO
[2024-02-22] MEDS: FUROSEMIDE 40 MG/4 ML VIAL IV ONE (13:00)
[2024-02-22 14:03] LABS: Basophils # (auto) 0 10 ^3/uL (0-0.2); Basophils % (auto) 0.2 % (0.0-2.0); Eosinophils # (auto) 0.6 10 ^3/uL (0-0.8); Eosinophils % (auto) 4.6 % (0.0-7.0); Hematocrit 38.6 % (41.0-53.0); Hemoglobin 12.9 g/dL (13.5-17.5); Lymphocytes # (auto) 1.6 10 ^3/uL (0.4-5.4); Lymphocytes % (auto) 11.5 % (10.0-50.0); Mean Corpuscular Hemoglobin 30.7 pg (28.0-32.0); Mean Corpuscular Hgb Conc. 33.4 g/dL (32.0-36.0); Mean Corpuscular Volume 91.9 fL (80.0-100.0); Monocytes # (auto) 0.9 10 ^3/uL (0-1.3); Monocytes % (auto) 6.9 % (0.0-12.0); Neutrophils # (auto) 10.6 10 ^3/uL (1.6-8.6); Neutrophils % (auto) 76.8 % (37.0-80.0); Nucleated Red Blood Cells % 0.1 %; Platelet Count (auto) 175 10^3/uL (140-450); Red Blood Cells 4.19 10^6/uL (4.5-5.90); Red Cell Distribution Width 14.4 % (11.8-14.3); White Blood Cell 13.8 10^3/uL (4.4-10.8)
[2024-02-22 14:06] LABS: Chloride 101 mmol/L (98-107)
[2024-02-22 14:07] LABS: Anion Gap 13 (5-15); Calcium 10.1 mg/dL (8.7-10.4); Carbon Dioxide 21 mmol/L (20-31)
[2024-02-22 14:12] LABS: BUN/Creatinine Ratio 7.7 (10.0-20.0)
--- NOTE | 2024-02-22 14:15 | DVH ---
EXAM: XY CHEST PORTABLE Indication: sob Technique: Single frontal view of the chest was obtained Comparison: XY CHEST PORTABLE on DOS: 11/09/23 FINDINGS: Lines and Tubes: Right internal jugular central venous catheter tip projects over the superior vena c venice. Lungs: Bibasilar opacities. Pleura: No effusion. No pneumothorax. Cardiomediastinal contours: Unremarkable Bones: No acute osseous abnormality. IMPRESSION: Bibasilar opacities.
[2024-02-22 14:17] LABS: Blood Urea Nitrogen 48 mg/dL (9-23); Glucose 165 mg/dL (74-106); Potassium 5.1 mmol/L (3.5-5.1); Sodium 135 mmol/L (136-145)
--- NOTE | 2024-02-22 16:06 | ED.PDOC ---
SOB-HPI HPI Comments 68 Y M with PMHX of CVA and DM brought in by ambulance with CC of SOB. Per EMS, patient has been experiencing SOB x2 weeks with associated symptoms of cough with green/yellow phlegm. Patient states he was advised to go to the ER due to low oxygen saturation reading taken this morning by his home health nurse, and intermittent fever. Patient denies chest pain, chills, body aches, nasal congestion or N/V/D. Chief Complaint: Shortness of Breath Time Seen by MD: 20:00 Primary Care Provider: KAIN Reviewed notes: Nurses Notes, Vp Legal Affairs Notes, Medications, Allergies Information Source: Patient, Emergency Med Personnel Mode of Arrival: EMS Timing: Weeks Duration: Since onset Context: At Rest PE Risk Factors: None History of: None Prehospital treatment: None Modifying Factors: Nothing Associated Signs and Symptoms: Fever, Cough Radiation: No Radiation Past Medical History PAST MEDICAL HISTORY: CHF, DM, HTN, [place] Past Medical History (Other): CVA Surgical History: Denies all surgeries Family History Family History: Unknown Social History Smoker: Non-Smoker Alcohol: Denies ETOH Use Drugs: Denies Drug Use Constitutional: reports: fever; denies: chills, diaphoresis, fatigue, malaise, sweats, weakness, others EENTM: denies: blurred vision, double vision, ear bleeding, ear discharge, ear drainage, ear pain, ear ringing, eye pain, eye redness, hearing loss, mouth pain, mouth swelling, nasal discharge, nose bleeding, nose congestion, nose pain, photophobia, tearing, throat pain, throat swelling, voice changes, others Respiratory: reports: cough, shortness of breath; denies: hemoptysis, orthopnea, SOB at rest, SOB with excertion, stridor, wheezing, others Cardiovascular: denies: chest pain, dizzy spells, diaphoresis, Dyspnea on exertion, edema, irregular heart beat, left arm pain, lightheadedness, palpitations, PND, syncope, others Gastrointestinal: denies: abdomen distended, abdominal pain, blood streaked bowels, constipated, diarrhea, dysphagia, difficulty swallowing, hematemesis, melena, nausea, poor appetite, poor fluid intake, rectal bleeding, rectal pain, vomiting, others Genitourinary: denies: burning, dysuria, flank pain, frequency, hematuria, incontinence, penile discharge, penile sore, pain, testicle pain, testicle swelling, urgency, others Neurological: denies: dizziness, fainting, headache, left sided numbness, left sided weakness, numbness, paresthesia, pre-existing deficit, right sided numb ness, right sided weakness, seizure, speech problems, tingling, tremors, weakness, others Musculoskeletal: denies: back pain, gout, joint pain, joint swelling, muscle pain, muscle stiffness, neck pain, others Integumetry: denies: bruises, change in color, change in hair/nails, dryness, laceration, lesions, lumps, rash, wounds, others Allergic/Immunocompromised: denies: Difficulty Healing, Frequent Infections, Hives, Itching, others Hematologic/Lymphatic: denies: anemia, blood clots, easy bleeding, easy bruising, swollen glands, others Endocrine: denies: excessive hunger, excessive sweating, excessive thirst, excessive urination, flushing, intolerance to cold, intolerance to heat, unexplained weight gain, unexplained weight loss, others Psychiatric: denies: anxiety, bipolar disorder, depression, hopeless, panic disorder, schizophrenia, sleepless, suicidal, others All Other Systems: Reviewed and Negative Physical Exam General Appearance: No Apparent Distress HEENT: Other (Pupils symmetric, moist mucous membranes) Neck: Full Range of Motion, Normal Inspection Respiratory: Decreased Breath Sounds, No Accessory Muscle Use, No Respiratory Distress Cardiovascular: No JVD, Regular Rate/Rhythm Breast Exam: Deferred Gastrointestinal: Non Tender, Soft Genitalia: Deferred Pelvic: Deferred Rectal: Deferred Extremities: Normal range of motion, Non-tender Neurologic: Alert (Oriented x4), No Motor Deficits, Normal Affect, Normal Mood, No Sensory Deficits Cerebellar Function: NOT DONE Reflexes: NOT DONE Skin: Dry, Normal Color, Warm Lymphatic: NOT DONE Was a procedure done? Was a procedure done?: No Differential Dx Differential Diagnosis: Asthma, Bronchitis, CHF, COPD, Pneumonia, Pulmonary Embolism, URI X-Ray, Labs, Meds, VS Vital Signs Date Time Temp Pulse Resp B/P (MAP) Pulse Ox O2 Delivery O2 Flow Rate FiO2 02/22/24 20:45 80 125/65 (85) 95 02/22/24 16:49 18 95 Nasal Cannula* 4 36 02/22/24 16:24 97.8 75 18 129/63 (85) 94 97.8 1/2/25 13:00 129/63 02/22/24 12:20 98.0 115 14 115/61 (79) 98 Lab Test 02/22/24 18:20 02/22/24 16:55 02/22/24 14:39 02/22/24 13:37 Range/Units Influenza Type A Antigen Negative Negative Influenza Type B Antigen Negative Negative SARS-CoV-2 Antigen (Rapid) Negative NEGATIVE Troponin I High Sensitivity 10 11 12 </=54 ng/L White Blood Count 13.8 H 4.4-10.8 10^3/uL Red Blood Count 4.19 L 4.5-5.90 10^6/uL Hemoglobin 12.9 L 13.5-17.5 g/dL Hematocrit 38.6 L 41.0-53.0 % Mean Corpuscular Volume 91.9 80.0-100.0 fL Mean Corpuscular Hemoglobin 30.7 28.0-32.0 pg Mean Corpuscular Hemoglobin Concent 33.4 32.0-36.0 g/dL Red Cell Distribution Width 14.4 H 11.8-14.3 % Platelet Count 175 140-450 10^3/uL Mean Platelet Volume 10.2 6.9-10.8 fL Neutrophils (%) (Auto) 76.8 37.0-80.0 % Lymphocytes (%) (Auto) 11.5 10.0-50.0 % Monocytes (%) (Auto) 6.9 0.0-12.0 % Eosinophils (%) (Auto) 4.6 0.0-7.0 % Basophils (%) (Auto) 0.2 0.0-2.0 % Neutrophils # (Auto) 10.6 H 1.6-8.6 10 ^3/uL Lymphocytes # (Auto) 1.6 0.4-5.4 10 ^3/uL Monocytes # (Auto) 0.9 0-1.3 10 ^3/uL Eosinophils # (Auto) 0.6 0-0.8 10 ^3/uL Basophils # (Auto) 0 0-0.2 10 ^3/uL Nucleated Red Blood Cells 0.1 % Sodium Level 135 L 136-145 mmol/L Potassium Level 5.1 3.5-5.1 mmol/L Chloride Level 101 98-107 mmol/L Carbon Dioxide Level 21 20-31 mmol/L Anion Gap 13 5-15 Blood Urea Nitrogen 48 H 9-23 mg/dL Creatinine 6.22 H 0.700-1.30 mg/dL Glomerular Filtration Rate Calc 9 >90 mL/min BUN/Creatinine Ratio 7.7 L 10.0-20.0 Serum Glucose 165 H 74-106 mg/dL Lactic Acid Level 0.9 0.4-2.0 mmol/L Calcium Level 10.1 8.7-10.4 mg/dL B-Type Natriuretic Peptide 154.16 0-100 pg/mL Current Medications Medications (Trade) Dose Ordered Sig/Pola Route Start Time Stop Time Status Last Admin Albuterol (Ventolin Medneb) 5 mg ONCE ONCE NEB 02/22/24 13:00 02/22/24 13:01 DC 02/22/24 16:49 Ipratropium [place] (Atrovent Medneb) 0.5 mg ONCE ONCE NEB 02/22/24 13:00 02/22/24 13:01 DC 02/22/24 16:49 [place] [address] Ph: [phone] DIAGNOSTIC IMAGING Diagnostic Imaging Report : [id number] Signed PATIENT: BEATRIZ PATEL ACCT: [id number] UNIT: [id number] : 1955 LOC: ER ROOM / BED: / AGE / SEX: 68 / M ADM STATUS: REG ER SERVICE 1256 ORDERING PHYSICIAN: PERLITA MARR MD PROCEDURE(s): CXRP - CHEST PORTABLE REASON: sob ORDER NUMBER(s): [id number], ACCESSION NUMBER(s): [id number] EXAM: XY CHEST PORTABLE Indication: sob Technique: Single frontal view of the chest was obtained Comparison: XY CHEST PORTABLE on DOS: 11/09/23 FINDINGS: Lines and Tubes: Right internal jugular central venous catheter tip projects over the superior vena cava. Lungs: Bibasilar opacities. Pleura: No effusion. No pneumothorax. Cardiomediastinal contours: Unremarkable Bones: No acute osseous abnormality. IMPRESSION: Bibasilar opacities. ATED BY: NILA ABERNATHY MD DICTATED DATE/TIME: 02/22/241413 SIGNED BY: NILA ABERNATHY MD SIGNED DATE/TIME: 02/22/241413 CC: X-Ray, Labs, Meds, VS Comment 68-year-old male with a history of hypertension, diabetes, CHF, mi and CVA presenting with shortness breath cough, congestion and hypoxia Vitals remarkable for heart rate 115, oxygen saturation 94% on 4 L nasal cannula Rhythm strip independently interpreted by me: Sinus tach, rate 115, no ectopy. Chest x-ray: Bibasilar opacities CBC remarkable for WBC 13.8, basic metabolic panel remarkable for sodium 135, BUN 48, creatinine 6.22, lactate normal, serial troponins negative, BNP 154.16 Patient treated with the following in the ED: Albuterol 5 mg/Atrovent 0.5 mg nebulized, Lasix 40 mg IV, Rocephin 1 g IV, Zithromax 500 mg IV On re-evaluation, patient is resting comfortably with stable vitals, oxygen saturation is 95% on 4 L nasal cannula. Plan is to admit the patient for IV antibiotics and respiratory support as needed. Patient was awaiting evaluation by hospitalist, he stated he did not want to wait any longer. I advised him of the risks of leaving prior to completion of treatment including worsening symptoms, permanent disability or . Specifically, he was advised he should have IV antibiotics and supplemental oxygen as well as other respiratory support as needed. He expressed understanding and stated he would prefer to go home. He was alert, oriented x4 and capable of making informed decisions at the time he signed out against medical advice. Time of 1ST Reevaluation: 20:30 Reevaluation 1ST: Unchanged Time of 2ND Reevaluation: 20:35 Reevaluation 2ND: Improved Patient Education/Counseling: Diagnosis, Treatment Family Education/Counseling: No Family Present Departure 1 Departure Time of Disposition: 20:35 Impression: Primary Impression: Pneumonia Qualified Codes: J18.9 - Pneumonia, unspecified organism Additional Impression: Hypoxia Disposition: 07 LEFT AGAINST MEDICAL ADVICE Condition: Guarded Critical Care Note Critical Care Time?: No Stability Stability form required: No Heart Score Heart Score: Heart Score Response (Comments) Value History N/A 0 EKG N/A 0 Age N/A 0 Risk Factors N/A 0 Troponin N/A 0 Total 0 I personally scribed for DEBBY MARRHERINE T MD (ARELY) on 02/22/24 at 16:06. Electronically submitted by Lauren Rodriguez ([email or web address]). I personally scribed for AU TYRELLPERLITA MD (ARELY) on 02/22/24 at 16:11. Electronically submitted by Lauren Rodriguez ([email or web address]). I personally scribed for AU TYRELLPERLITA MD ([email or web address]) on 02/22/24 at 16:12. Electronically submitted by Lauren Rodriguez ([email or web address]). I personally scribed for AU TYRELLPERLITA MD ([email or web address]) on 02/22/24 at 16:52. Electronically submitted by Lauren Rodriguez ([email or web address]). I personally scribed for AU TYRELLPERLITA MD (ARELY) on 02/22/24 at 18:49. Electronically submitted by Lauren Rodriguez ([email or web address]). I personally scribed for AU TYRELLPERLITA MD (ARELY) on 02/22/24 at 20:11. Electronically submitted by Lauren Rodriguez ([email or web address]). PERLITA MARR MD Feb 22, 2024 16:06
[2024-02-22 16:24] VITALS: TEMP 97.8
[2024-02-22 16:49] VITALS: RESP 18
[2024-02-22] MEDS: ALBUTEROL SULF 2.5 MG/0.5ML(0.5%) NEB SOLN NEB ONE (16:49)
[2024-02-22] MEDS: IPRATROPIUM BROM 0.5 MG/2.5ML INH SOL NEB ONE (16:49)
[2024-02-22 20:37] LABS: Rapid Influenza A Negative (Negative); Rapid Influenza B Negative (Negative)
[2024-02-22 20:38] LABS: COVID19 ANTIGEN SOFIA FIA NEGATIVE (NEGATIVE)
[2024-02-22 20:45] VITALS: BP 125/65; PULSE 80; O2SAT 95
[2024-02-22] MEDS ORDERED: AZITHROMYCIN 500MG/ 250ML 250 ML IV ONE (20:45)
[2024-02-22] MEDS ORDERED: cefTRIAXone 1GM/50ML D5W 50 ML IV ONE (20:45)
--- NOTE | 2024-02-22 22:13 | DVHHPRES ---
History of Present Illness Resident Creating Document: FIFI GIVENS RESIDENT History of Present Illness This is a 68-year-old male with past medical history of of hypertension, hyperlipidemia, CAD, CVA, end-stage renal disease on hemodialysis, type 2 diabetes mellitus, chronic IV heroin user presented to the ED with a chief c omplaint of shortness of breath and low oxygen saturation recorded by his home health nurse this morning prior to this admission. He states that for last follow up 4 days he has low-grade fever ,cough with greenish sputum associated with shortness of breath. The patient is a chronic IV heroin user and there is IV violet on both legs and left leg there is infected wound that needs regular dressing done by his home health nurse. He also mentioned he is on dialysis 3 times a week and the last dialysis was 1 days ago. The patient denies chest pain, dizziness, diaphoresis, abdominal pain, nausea, vomiting, dysuria, hematuria, sick contact or any change in bowel and bladder movement. Past Medical History Hypertension, hyperlipidemia, CAD, CVA, end-stage renal disease on hemodialysis, type 2 DM Past Surgical History Hip replacement surgery Family History None Past Social History Lives with the family Used to smoke half a pack/day for last 30 years, quit 1 months ago, occasional drinker and IV heroin user Review of Systems Constitutional: Yes: Fever, Weakness, Malaise Eyes: No: Pain, Vision change, Conjunctivae inflammation, Eyelid inflammation, Other, Redness ENT: No: Ear pain, Ear discharge, Nose pain, Nose discharge, Nose congestion, Mouth pain, Mouth swelling, Throat pain, Throat swelling, Other Respiratory: Cough, Shortness of breath, Sputum; No: Dry, SOB with excertion, Wheezing, Hemoptysis, Pleuritic Pain, Wheezing, Other Cardiovascular: No: Chest Pain, Palpitations, Orthopnea, Paroxysmal Noc. Dyspnea, Edema, Lt Headedness, Other Gastrointestinal: No: Nausea, Vomiting, Abdominal Pain, Diarrhea, Constipation, Melena, Hematochezia, Other Genitourinary: No Dysuria, No Frequency, No Incontinence, No Hematuria, No Retention, No Other Musculoskeletal: No: other, neck pain, shoulder pain, arm pain, back pain, hand pain, leg pain, foot pain Skin: No: Rash, Lesions, Jaundice, Bruising, Other Neurological: No: Weakness, Numbness, Incoordination, Change in speech, Confusion, Seizures, Other Allergies: Coded Allergies: Penicillins (Verified Allergy, Unknown, 07/28/22) Medications Current Medications Medications Dose Ordered Sig/Pola Route Start Time Stop Time Status Last Admin Dose Admin Vancomycin HCl 0 ml @ 0 mls/hr UD IV 02/22/24 22:15 UNV Cefepime HCl 50 ml @ 12.5 mls/hr DAILY IV 02/23/24 10:00 UNV Furosemide 40 mg DAILY IV 02/23/24 10:00 UNV Exam Vital Signs Vital Signs Date Time Temp Pulse Resp B/P (MAP) Pulse Ox O2 Delivery O2 Flow Rate FiO2 02/22/24 20:45 80 125/65 (85) 95 02/22/24 16:49 18 Nasal Cannula* 4 36 02/22/24 16:24 97.8 97.8 Exam Physical examination: General Appearance: Alert, Oriented X3, Cooperative, mild acute distress HEENT: Atraumatic, PERRLA, EOMI, Mucous membrane moist/pink Respiratory: Crackles bilaterally in lower lung zones and more on the Lt side. Cardiovascular: Regular rate, Normal S1, Normal S2, No murmurs, no chest wall tenderness Abdominal: Normal bowel sounds, Soft, No tenderness, No hepatospenomegaly, No masses Extremities: Infected ulcer in the Lt leg and IV needle violet on the rt leg, edema+, No clubbing, No cyanosis, Normal pulses. Skin: No rashes, No breakdown, No significant lesion Neuro: Normal speech, Strength at 5/5 X4 ext, Normal tone, Sensation intact, grossly intact cranial nerves. Psych/Mental Status: Mental status NL, Mood NL Labs/Xrays Labs Test 02/22/24 18:20 02/22/24 16:55 02/22/24 13:37 Range/Units Influenza Type A Antigen Negative Negative Influenza Type B Antigen Negative Negative SARS-CoV-2 Antigen (Rapid) Negative NEGATIVE Troponin I High Sensitivity 10 </=54 ng/L White Blood Count 13.8 H 4.4-10.8 10^3/uL Red Blood Count 4.19 L 4.5-5.90 10^6/uL Hemoglobin 12.9 L 13.5-17.5 g/dL Hematocrit 38.6 L 41.0-53.0 % Mean Corpuscular Volume 91.9 80.0-100.0 fL Mean Corpuscular Hemoglobin 30.7 28.0-32.0 pg Mean Corpuscular Hemoglobin Concent 33.4 32.0-36.0 g/dL Red Cell Distribution Width 14.4 H 11.8-14.3 % Platelet Count 175 140-450 10^3/uL Mean Platelet Volume 10.2 6.9-10.8 fL Neutrophils (%) (Auto) 76.8 37.0-80.0 % Lymphocytes (%) (Auto) 11.5 10.0-50.0 % Monocytes (%) (Auto) 6.9 0.0-12.0 % Eosinophils (%) (Auto) 4.6 0.0-7.0 % Basophils (%) (Auto) 0.2 0.0-2.0 % Neutrophils # (Auto) 10.6 H 1.6-8.6 10 ^3/uL Lymphocytes # (Auto) 1.6 0.4-5.4 10 ^3/uL Monocytes # (Auto) 0.9 0-1.3 10 ^3/uL Eosinophils # (Auto) 0.6 0-0.8 10 ^3/uL Basophils # (Auto) 0 0-0.2 10 ^3/uL Nucleated Red Blood Cells 0.1 % Sodium Level 135 L 136-145 mmol/L Potassium Level 5.1 3.5-5.1 mmol/L Chloride Level 101 98-107 mmol/L Carbon Dioxide Level 21 20-31 mmol/L Anion Gap 13 5-15 Blood Urea Nitrogen 48 H 9-23 mg/dL Creatinine 6.22 H 0.700-1.30 mg/dL Glomerular Filtration Rate Calc 9 >90 mL/min BUN/Creatinine Ratio 7.7 L 10.0-20.0 Serum Glucose 165 H 74-106 mg/dL Lactic Acid Level 0.9 0.4-2.0 mmol/L Calcium Level 10.1 8.7-10.4 mg/dL B-Type Natriuretic Peptide 154.16 0-100 pg/mL Assessment/Plan Assessment/Plan Assessment and plan: # Acute hypoxic respiratory failure due to possible Gram-positive/Gram-negative pneumonia - Patient is on 4 L oxygen with saturation 95% # Possible Gram-positive/Gram-negative pneumonia - Patient had recent hospitalization in three-month for pneumonia - Chronic IV drug user - Infected ulcer in the left lower leg - chest x-ray revealed bibasilar opacities - Ordered sputum C/S and blood C/S - IV cefepime 1 g daily and IV vancomycin as per pharmacy # ESRD on hemodialysis 3 times a week - Strict I/O - Avoid nephrotoxic medication - Consulted nephrology. # History CHF with improved ejection fraction. - BNP is mildly elevated. - chest xray revealed possible pulmonary vascular congestion. - IV Lasix 40 mg daily. # History of CAD # History of recent stroke 1 month ago with rt sided weakness - Aspirin 81 mg p.o. daily and atorvastatin 80 mg daily. # Hypertensive heart disease - Carvedilol 12.5 mg p.o. b.i.d and Isosorbide dinitrate 20 mg P.O daily. # History of BPH - Tamsulosin 0.4 mg daily. # PUD prophylaxis - Pepcid 20 mg p.o daily. # DVT prophylaxis - Heparin 5000 unit sc b.i.d Goal of care discussed with the patient for more than 17 minutes full code Plan discussed with Dr. Fisher Plan discussed with: Patient, Other My Orders Orders - FIFI GIVENS Procedure Category Date Status Time Admit ADMIT 02/22/24 Transmitted 21:29 Drug Screen LAB 02/22/24 Transmitted 22:09 Blood Alcohol LAB 02/22/24 Transmitted 22:09 Urinalysis LAB 02/22/24 Transmitted 22:09 Hemoglobin A1c LAB 02/22/24 Transmitted 22:09 Thyroid Stimulating LAB 02/22/24 Transmitted Hormone 22:09 Vancomycin Per PHA 02/22/24 Transmitted Pharmacy 22:15 Cefepime 1 Gm PHA 02/23/24 Transmitted 10:00 Furosemide Injection PHA 02/23/24 Transmitted (Lasix Injection) 10:00 Date of Service: Feb 22, 2024 Billing Provider: LINDA FISHER MD Common Visit Codes: [id number] INP/OBS CARE (HIGH) Secondary Visit Codes: [id number] CARE PLAN 30 MINUTES FIFI GIVENS Feb 22, 2024 22:13 LINDA FISHER MD Feb 26, 2024 19:52
[2024-02-22] MEDS ORDERED: VANCOMYCIN PER PHARMACY 0 MG IV SCH (22:15)
[2024-02-22] MEDS ORDERED: VANCOMYCIN 1GM/250mL NS or D5W KIT IV ONE ×2 (22:30→23:30)
[2024-02-23] MEDS ORDERED: ISOSORBIDE DINITRATE 20 MG PO SCH (10:00)
[2024-02-23] MEDS ORDERED: HEPARIN SODIUM (PORCINE) 5000 UNITS/ML 1ML VIAL SC SCH (10:00)
[2024-02-23] MEDS ORDERED: CARVEDILOL 12.5 MG TAB PO SCH (10:00)
[2024-02-23] MEDS ORDERED: CEFEPIME 1GM/ 50ML 50 ML IV SCH (10:00)
[2024-02-23] MEDS ORDERED: ASPirin-EC 81 mg tab PO SCH (10:00)
[2024-02-23] MEDS ORDERED: FUROSEMIDE 40 MG/4 ML VIAL IV SCH (10:00)
[2024-02-23] MEDS ORDERED: FAMOTIDINE 20 MG TAB PO SCH (10:00)
[2024-02-23] MEDS ORDERED: AZITHROMYCIN 250 MG TAB PO ONE (10:45)
--- NOTE | 2024-02-23 10:48 | DVHPNRES ---
Progress Note Date Seen: Feb 23, 2024 Objective vital signs Vital Sign Date Time Temp Pulse Resp B/P (MAP) Pulse Ox O2 Delivery O2 Flow Rate FiO2 02/22/24 20:45 80 125/65 (85) 95 02/22/24 16:49 18 Nasal Cannula* 4 36 02/22/24 16:24 97.8 97.8 laboratory and microbiology Laboratory Tests 02/22/24 13:37 Test 02/22/24 13:37 Range/Units Serum Glucose 165 H 74-106 mg/dL Labs and/or images reviewed: Labs reviewed by me, Image(s) reviewed by me Problem List/Assessment/Plan Problem List/Assessment/Plan Hospitalization summary/ Assessment: Ms. Graves, 68-year-old male with a history of hypertension, hyperlipidemia, CAD, CVA, end-stage renal disease on hemodialysis, type 2 diabetes mellitus, and chronic IV heroin use presented to the ED with shortness of breath and low oxygen saturation, Fever, Weakness, Malaise, Shortness of breath, Sputum noted by his home health nurse. He reported a low-grade fever, cough with greenish sputum, and shortness of breath for the past four days. He has IV millan on both legs and an infected wound on his left leg requiring regular dressing. He undergoes dialysis three times a week, with his last session one day ago. He denies chest pain, dizziness, diaphoresis, abdominal pain, nausea, vomiting, dysuria, hematuria, sick contact, or changes in bowel and bladder movements. He lives with his family, quit smoking a month ago after 30 years, drinks occasionally, and uses IV heroin. previous hospitalization in October,, August 09, 2022 with pneumonia Secondary to Gram-positive/Gram-negative status post IV antibiotics and and sepsis with pneumonia and lower extremity cellulitis previously Plan: # Gram-positive/Gram-negative pneumonia: Patient had recent hospitalization in three-month for pneumonia, IV cefepime 1 g daily and IV vancomycin as per pharmacy, for atypical coverage added azithromycin. Also follow viral, causes including COVID and influenza. Bibasilar opacities, on CXR, Follow up blood cultures and sputum cultures. # Acute hypoxic respiratory failure due to possible: Patient is on 4 L oxygen with saturation 95% , treat underlying cause and we will try to wean the oxygen, nonsmoker non COPD, we will try to keep the SpO2 above 94%. # ESRD on hemodialysis 3 times a week: Strict I/O, nephrology consulted for in- hospital dialysis. # History CHF with recovered ejection fraction (HFrecEF): Last EF checked 11/10/2023 with 60% ejection fraction. , previously LVEF 35% with suspected coronary artery disease and RV dysfunction in 08/19/2022. - BNP is mildly elevated. - chest xray revealed possible pulmonary vascular congestion. - IV Lasix 40 mg daily. # History of CAD: Aspirin 81 mg p.o. daily and atorvastatin 80 mg daily. # History of essential hypertension: continue home medications. # History of recent stroke 1 month ago with rt sided weakness: Aspirin 81 mg p.o. daily and atorvastatin 80 mg daily. # Hypertensive heart disease: Carvedilol 12.5 mg p.o. b.i.d and Isosorbide dinitrate 20 mg P.O daily. Goal is to keep the blood pressure below 140/90 or below. # History of BPH: Tamsulosin 0.4 mg daily. # known diabetes mellitus type 2: 8.4 of HbA1c. Last noted in 11/10/2023. Repeat, we will keep BG 140-180 as per NICE sugar trial. Diet: CC diet, GI prophylaxis: famotidine DVT prophylaxis: heparin Bowel regimen: not needed Barriers to discharge: Medical diagnosis and management in progress. Patient lives with self / family. Independent/need supportive device/wheelchair/person support for ADL. PT and SW consult as needed. PCP: poor follow up, needs to establish and follow up closely with PCP. Specialist Relevant To Admission: Nephrology Patient care and plan discussed with Dr. Wilhelm Disposition: Patient remains in Med-Surg level of care. My Orders My Orders Orders - HELEN PULIDO RESIDENT Procedure Category Date Status Time Covid19 Antigen Marilyn LAB 02/23/24 Logged Rapid Influenza A&B LAB 02/23/24 Logged 10:37 HELEN PULIDO RESIDENT Feb 23, 2024 10:48
--- NOTE | 2024-02-23 14:27 | DVHDSRES ---
Discharge Summary Date of Admission Resident Creating Document: FIFI GIVENS RESIDENT Feb 22, 2024 at 21:29 Date of Discharge: Feb 23, 2024 Admitting Diagnosis B/l Leg swelling. Wounds: b/l legs swelling and wounds. Labs/Diagnostic Data: Laboratory Results Test 02/22/24 18:20 02/22/24 16:55 02/22/24 13:37 Influenza Type A Antigen Negative (Negative) Influenza Type B Antigen Negative (Negative) SARS-CoV-2 Antigen (Rapid) Negative (NEGATIVE) Troponin I High Sensitivity 10 ng/L (</=54) White Blood Count 13.8 10^3/uL (4.4-10.8) Red Blood Count 4.19 10^6/uL (4.5-5.90) Hemoglobin 12.9 g/dL (13.5-17.5) Hematocrit 38.6 % (41.0-53.0) Mean Corpuscular Volume 91.9 fL (80.0-100.0) Mean Corpuscular Hemoglobin 30.7 pg (28.0-32.0) Mean Corpuscular Hemoglobin Concent 33.4 g/dL (32.0-36.0) Red Cell Distribution Width 14.4 % (11.8-14.3) Platelet Count 175 10^3/uL (140-450) Mean Platelet Volume 10.2 fL (6.9-10.8) Neutrophils (%) (Auto) 76.8 % (37.0-80.0) Lymphocytes (%) (Auto) 11.5 % (10.0-50.0) Monocytes (%) (Auto) 6.9 % (0.0-12.0) Eosinophils (%) (Auto) 4.6 % (0.0-7.0) Basophils (%) (Auto) 0.2 % (0.0-2.0) Neutrophils # (Auto) 10.6 10 ^3/uL (1.6-8.6) Lymphocytes # (Auto) 1.6 10 ^3/uL (0.4-5.4) Monocytes # (Auto) 0.9 10 ^3/uL (0-1.3) Eosinophils # (Auto) 0.6 10 ^3/uL (0-0.8) Basophils # (Auto) 0 10 ^3/uL (0-0.2) Nucleated Red Blood Cells 0.1 % Sodium Level 135 mmol/L (136-145) Potassium Level 5.1 mmol/L (3.5-5.1) Chloride Level 101 mmol/L (98-107) Carbon Dioxide Level 21 mmol/L (20-31) Anion Gap 13 (5-15) Blood Urea Nitrogen 48 mg/dL (9-23) Creatinine 6.22 mg/dL (0.700-1.30) Glomerular Filtration Rate Calc 9 mL/min (>90) BUN/Creatinine Ratio 7.7 (10.0-20.0) Serum Glucose 165 mg/dL (74-106) Lactic Acid Level 0.9 mmol/L (0.4-2.0) Calcium Level 10.1 mg/dL (8.7-10.4) B-Type Natriuretic Peptide 154.16 pg/mL (0-100) Other Laboratory Tests 02/22/24 13:37 Brief Hx & Hospital Course: Hospitalization summary: Ms. Graves, 68-year-old male with a history of hypertension, hyperlipidemia, CAD, CVA, end-stage renal disease on hemodialysis, type 2 diabetes mellitus, and chronic IV heroin use presented to the ED with shortness of breath and low oxygen saturation, Fever, Weakness, Malaise, Shortness of breath, Sputum noted by his home health nurse. He reported a low- grade fever, cough with greenish sputum, and shortness of breath for the past four days. He has IV millan on both legs and an infected wound on his left leg requiring regular dressing. He undergoes dialysis three times a week, with his last session one day ago. He denies chest pain, dizziness, diaphoresis, abdominal pain, nausea, vomiting, dysuria, hematuria, sick contact, or changes in bowel and bladder movements. He lives with his family, quit smoking a month ago after 30 years, drinks occasionally, and uses IV heroin. previous hospitalization in October,, August 09, 2022 with pneumonia Secondary to Gram-positive/Gram-negative status post IV antibiotics and and sepsis with pneumonia and lower extremity cellulitis previously. Left AMA before we could evalutate. Medical conditions treated in hospital: # Gram-positive/Gram-negative pneumonia: Patient had recent hospitalization in three-month for pneumonia, IV cefepime 1 g daily and IV vancomycin as per pharmacy, for atypical coverage added azithromycin. Also follow viral, causes including COVID and influenza. Bibasilar opacities, on CXR, Follow up blood cultures and sputum cultures. # Acute hypoxic respiratory failure due to possible: Patient is on 4 L oxygen with saturation 95% , treat underlying cause and we will try to wean the oxygen, nonsmoker non COPD, we will try to keep the SpO2 above 94%. # ESRD on hemodialysis 3 times a week: Strict I/O, nephrology consulted for in- hospital dialysis. # History CHF with recovered ejection fraction (HFrecEF): Last EF checked 11/10/2023 with 60% ejection fraction. , previously LVEF 35% with suspected coronary artery disease and RV dysfunction in 08/19/2022. # History of CAD: Aspirin 81 mg p.o. daily and atorvastatin 80 mg daily. # History of essential hypertension: continue home medications. # History of recent stroke 1 month ago with rt sided weakness: Aspirin 81 mg p.o. daily and atorvastatin 80 mg daily. # Hypertensive heart disease: Carvedilol 12.5 mg p.o. b.i.d and Isosorbide dinitrate 20 mg P.O daily. Goal is to keep the blood pressure below 140/90 or below. # History of BPH: Tamsulosin 0.4 mg daily. # known diabetes mellitus type 2: 8.4 of HbA1c. Last noted in 11/10/2023. Repeat, we will keep BG 140-180 as per NICE sugar trial. Patient care and plan discussed with Dr. Wilhelm. Unfortunately before we can evaluate the patient patient has left AMA. Discharge planning needed 37 minutes of detailed discussion. Follow up: Patient needs to follow up with PCP within 1-2 weeks of discharge. In case of any ominous sign, increasing pain, fever, or worsening sickness patient should come back to ED/acute care for further evaluation. Medications: Continue home medications, avoid iv drugs. To discuss during next visit with PCP. Consults/Reason for consult NA Operations or Procedures [address] [address] Ph: [phone] DIAGNOSTIC IMAGING Diagnostic Imaging Report : [id number] Signed PATIENT: BEATRIZ GRAVES ACCT: [id number] UNIT: [id number] : 1955 LOC: ER ROOM / BED: / AGE / SEX: 68 / M ADM STATUS: REG ER SERVICE [id number] ORDERING PHYSICIAN: PERLITA MARR MD PROCEDURE(s): CXRP - CHEST PORTABLE REASON: sob ORDER NUMBER(s): [id number], ACCESSION NUMBER(s): [id number] EXAM: XY CHEST PORTABLE Indication: sob Technique: Single frontal view of the chest was obtained Comparison: XY CHEST PORTABLE on DOS: 11/09/23 FINDINGS: Lines and Tubes: Right internal jugular central venous catheter tip projects over the superior vena cava. Lungs: Bibasilar opacities. Pleura: No effusion. No pneumothorax. Cardiomediastinal contours: Unremarkable Bones: No acute osseous abnormality. IMPRESSION: Bibasilar opacities. ATED BY: NILA ABERNATHY MD DICTATED DATE/TIME: 02/22/241413 SIGNED BY: NILA ABERNATHY MD SIGNED DATE/TIME: 02/22/24 141 CC: Condition at Discharge: Undetermined Final Diagnosis/Problems List # Gram-positive/Gram-negative pneumonia # Acute hypoxic respiratory failure due to possible # ESRD on hemodialysis 3 times a week # History CHF with recovered ejection fraction (HFrecEF): Last EF checked 11/10/2023 with 60% ejection fraction. , previously LVEF 35% with suspected coronary artery disease and RV dysfunction in 08/19/2022. # History of CAD: Aspirin 81 mg p.o. daily and atorvastatin 80 mg daily. # History of essential hypertension: continue home medications. # History of recent stroke 1 month ago with rt sided weakness: Aspirin 81 mg p.o. daily and atorvastatin 80 mg daily. # Hypertensive heart disease: Carvedilol 12.5 mg p.o. b.i.d and Isosorbide dinitrate 20 mg P.O daily. Goal is to keep the blood pressure below 140/90 or below. # History of BPH: Tamsulosin 0.4 mg daily. # known diabetes mellitus type 2: 8.4 of HbA1c. Discharge Disposition: AMA Discharge Instruct/Medications Diet: Consistent carbohydrate Activity: No Restrictions, As Tolerated Follow Up/Referral: as above. Medications: as above. Discharge Statement: "Patient was advised to return to the ER or call 911 if any headaches, dizziness, shortness of breath, chest pain, abdominal pain, bleeding, fevers, or worsening of medical condition. Patient was counseled about treatment plan, medications, possible side effects, patientverbalized understanding. All questions were answered to the best of my ability. This discharge took greater then 30 minutes in planning, reviewing documentation, counseling the patient, and discussing with other team members." ASSESSMENT ASSESSMENT Assessment Date of Service: Feb 23, 2024 Billing Provider: LISA CANNON MD Common Visit Codes: 82875-QHI/OBS DISCH DAY >30min HELEN PULIDO RESIDENT Feb 23, 2024 14:26 LISA CANNON MD Feb 29, 2024 09:32
[2024-02-23] MEDS ORDERED: TAMSULOSIN HYDROCHLORIDE 0.4 MG CAP PO SCH (18:00)
[2024-02-23] MEDS ORDERED: ATORVASTATIN 20 MG TAB PO SCH (22:00)
[2024-02-24] MEDS ORDERED: AZITHROMYCIN 250 MG TAB PO SCH (10:00)
== END 2024-02-22 21:47 | disposition left against medical advice (07) | DRG 177 ==
LOC: EDBD 12:09 → ER 12:09 → OVERFLOW 21:29
PROVIDERS: ATTEND Internal Medicine Nephrology
DX: J15.69 Pneumonia due to other Gram-negative bacteria (principal); J96.01 Acute respiratory failure with hypoxia; N18.6 End stage renal disease; I13.2 Hypertensive heart and chronic kidney disease with heart failure and with stage 5 chronic kidney disease, or end stage renal disease; I50.30 Unspecified diastolic (congestive) heart failure; I69.351 Hemiplegia and hemiparesis following cerebral infarction affecting right dominant side; Z20.822 Contact with and (suspected) exposure to COVID-19; J15.9 Unspecified bacterial pneumonia; Z53.29 Procedure and treatment not carried out because of patient's decision for other reasons; E78.5 Hyperlipidemia, unspecified; I25.10 Atherosclerotic heart disease of native coronary artery without angina pectoris; E11.22 Type 2 diabetes mellitus with diabetic chronic kidney disease; N40.0 Benign prostatic hyperplasia without lower urinary tract symptoms; I25.2 Old myocardial infarction; Z79.899 Other long term (current) drug therapy
CPT/HCPCS: 36415; 71045; 80048; 83605; 83880; 84484; 85025; 87040; 87426; 87804; 94640; G0378